=== PATIENT | male | born 1990 | race Caucasian/White ===

== ENCOUNTER 2020-04-22 19:52 | Emergency (ER) | payer OTHER ==
[~2020-04-22] VITALS: Ht 175.3 cm; Wt 81.7 kg
== END 2020-04-22 21:05 | disposition home or self-care (01) ==
LOC: ER 19:52
DX: S61.412A Laceration without foreign body of left hand, initial encounter (principal); F17.200 Nicotine dependence, unspecified, uncomplicated; W26.0XXA Contact with knife, initial encounter
CPT/HCPCS: 12001; 99282-25

== ENCOUNTER 2023-08-30 06:03 | Emergency (ER) | payer OTHER ==
[~2023-08-30] VITALS: Ht 177.8 cm; Wt 81.7 kg
[2023-08-30] MEDS ORDERED: Ampicillin Sod/Sulbactam Sod 3 GM in NS 100 ML IV ONE (06:25)
[2023-08-30] MEDS ORDERED: MetroNIDAZOLE 500MG/NS 100 ml 100 ML IV ONE (06:30)
[2023-08-30] MEDS ORDERED: CefTRIAXone Sodium 2,000 MG in NS 100 ML IV ONE (06:30)
[2023-08-30] MEDS ORDERED: Dexamethasone Sod Phos 10 MG/ML 1ML VIAL IV ONE (06:30)
[2023-08-30] MEDS ORDERED: Ketorolac Tromethamine 30mg Vial IV ONE (06:35)
[2023-08-30 07:04] LABS: BASOPHILS ABSOLUTE AUTO 0.06 K/mm3 (0.00-0.23); BASOPHILS PERCENT AUTO 0 % (0-2); EOSINOPHILS PERCENT AUTO 1 % (0-6); Hematocrit 44.7 % (37.0-53.0); Hemoglobin 15.3 g/dL (13.5-17.5); IMMATURE GRAN ABSOLUTE AUTO 0.09 K/mm3 (0.00-0.10); IMMATURE GRAN PERCENT AUTO 1 % (0-1); LYMPHOCYTES PERCENT AUTO 4 % (21-46); MONOCYTES ABSOLUTE AUTO 1.37 K/mm3 (0.16-1.47); MONOCYTES PERCENT AUTO 8 % (4-13); Mean Corpuscular HGB Conc 34.2 g/dL (31.5-36.5); Mean Corpuscular Volume 85 fL (80-100); Mean Platelet Volume 10.6 fL (9.1-12.4); NEUTROPHILS ABSOLUTE AUTO 14.06 K/mm3 (1.96-9.15); NEUTROPHILS PERCENT AUTO 86 % (41-73); Platelet Count 183 K/mm3 (150-400); RDW Coefficient Variation 12.2 % (11.7-14.2); RDW Standard Deviation 37.7 fL (35.1-46.3); Red Blood Cell Count 5.27 M/mm3 (4.30-5.90); White Blood Cell Count 16.28 K/mm3 (4.00-11.30)
[2023-08-30 07:14] LABS: Albumin, Blood 3.6 g/dL (3.4-5.0); Bilirubin, Total 3.3 mg/dL (0.1-1.0); Bun/Creatinine Ratio 13.8 (12.0-20.0); C-REACTIVE PROTEIN, EXT RANGE 5.84 mg/dL (0.000-0.300); Calcium, Blood 8.7 mg/dL (8.5-10.1); Creatinine, Blood 0.58 mg/dL (0.60-1.20); Globulin, Blood 3.6 g/dL (2.2-4.0); Potassium, Blood 3.7 mmol/L (3.5-5.5); Total Protein, Blood 7.2 g/dL (6.4-8.2)
[2023-08-30] MEDS ORDERED: Cleocin HCl150 MG PO (08:05)
[2023-08-30 08:07] VITALS: BP 133/75
== END 2023-08-30 08:18 | disposition home or self-care (01) ==
LOC: ER 06:03
PROVIDERS: Student in an Organized Health Care Education/Training Program
DX: G89.18 Other acute postprocedural pain (principal); K08.89 Other specified disorders of teeth and supporting structures; F17.210 Nicotine dependence, cigarettes, uncomplicated; Z98.818 Other dental procedure status; Z88.0 Allergy status to penicillin; Z88.8 Allergy status to other drugs, medicaments and biological substances
CPT/HCPCS: 70491; 80053; 82248; 83735; 85025; 85651; 86140; 96365-59; 96368; 96375; 99284-25; J0696; J1100; J1885; Q9967